=== PATIENT | female | born 1945 | race Hispanic/Latino ===

== ENCOUNTER 2016-05-16 06:03 | Inpatient (IN) | payer MEDICARE, OTHER ==
[2016-04-30 11:10] VITALS: BMI 34.5
[2016-05-16] MEDS ORDERED: Succinylcholine 200 mg/10 ml Inj IV ONE (07:13)
[2016-05-16] MEDS ORDERED: Neostigmine Methylsulfate 2 MG/2 ML ML IV ONE (07:13)
[2016-05-16] MEDS ORDERED: Propofol 10 mg/ml Inj (20 ML) ONE (07:13)
[2016-05-16] MEDS ORDERED: Lidocaine 4% (Laryng-O-Jet) Kit MM ONE (07:13)
[2016-05-16] MEDS ORDERED: Midazolam 2 MG/2 ML VIAL ONE (07:13)
[2016-05-16] MEDS ORDERED: Rocuronium 10 mg/ml (5 ml) ONE ×2 (07:15→07:46)
--- NOTE | 2016-05-16 07:27 | CP.PCM.CON ---
History of Present Illness - History of Present Illness History of Present Illness: 70 yo female seen in the office by Dr. Yoon,hx lumbar laminectomy and instrumented fusion for spondylosis and instability,presents with recurrent worsening LBP radiating down LLE with paresthesias,no relief with conservative management or narcotics,no relief with epidural pain injection 2 weeks ago with pain management,MRI showing lumbar spondylosis and HNP L3-4,ambulates with cane ,increasing difficulty performing ADL's,surgical and non surgical options discussed with pt,denies bowel or bladder incontinance,pelvic paresthesias,foot drop,trauma or fall. Review of Systems - Review of Systems Systems not reviewed;Unavailable: Acuity of Condition - Neurological Neurological: As Per HPI - Hematologic/Lymphatic Additional comments: daily ASA 81 mg Past Patient History - Infectious Disease Hx of Infectious Diseases: None - Tetanus Immunizations Tetanus Immunization: Unknown - Past Medical History & Family History Past Medical History?: Yes - Past Social History Smoking Status: Former Smoker Chewing Tobacco Use: No Cigar Use: No Alcohol: Occasional Drugs: Denies - CARDIAC Hx Cardiac Disorders: Yes Hx Hypercholesterolemia: Yes Hx Hypertension: Yes Hx Pacemaker: No - PULMONARY Hx Respiratory Disorders: Yes Hx Bronchitis: Yes (SEPTEMBER 2015) - NEUROLOGICAL Hx Neurological Disorder: Yes Hx Dizziness: Yes Hx Paralysis: No Hx Vertigo: Yes Other/Comment: NUMBNESS.TINGLING LEGS AND TOES .ARMS - HEENT Hx HEENT Problems: Yes Hx Cataracts: Yes - RENAL Hx Chronic Kidney Disease: No - ENDOCRINE/METABOLIC Hx Endocrine Disorders: Yes Hx Diabetes Mellitus Type 2: Yes Hx Hypothyroidism: Yes - HEMATOLOGICAL/ONCOLOGICAL Hx Blood Disorders: No Hx Blood Transfusions: No Hx Blood Transfusion Reaction: No - INTEGUMENTARY Hx Dermatological Problems: No - MUSCULOSKELETAL/RHEUMATOLOGICAL Hx Musculoskeletal Disorders: Yes Hx Arthritis: Yes Hx Back Pain: Yes Hx Falls: Yes Hx Osteoarthritis: Yes Hx Osteoporosis: Yes Other/Comment: MUSCLE WEAKNESS .LIMIT JOINT MOTION - GASTROINTESTINAL Hx Gastrointestinal Disorders: Yes Hx Gastroesophageal Reflux: Yes Hx Ulcer: Yes - GENITOURINARY/GYNECOLOGICAL Hx Genitourinary Disorders: Yes Hx Urinary Tract Infection: Yes - PSYCHIATRIC Hx Psychophysiologic Disorder: Yes Hx Depression: Yes Hx Emotional Abuse: No Hx Physical Abuse: No Hx Substance Use: No - SURGICAL HISTORY Hx Surgeries: Yes Hx Musculoskeletal Surgery: Yes (back surgery) Hx Orthopedic Surgery: Yes (RIGHT SHOULDR ROTATOR CUFF REPAIR) Other/Comment: LEFT OVARIAN CYSTECTOMY .EXCISION OF LIPOMA ON CHEST .SPINAL FUSION .MICRO DISECTOMY .LUMBAR LAMINECTOMY. laminectomy 01/11/16 - ANESTHESIA Hx Anesthesia: Yes Hx Anesthesia Reactions: No Hx Malignant Hyperthermia: No Has any member of the family had a problem w/ anesthesia?: No Meds Allergies/Adverse Reactions: Allergies Allergy/AdvReac Type Severity Reaction Status Date / Time No Known Allergies Allergy Verified 01/14/16 14:06 Physical Exam - Constitutional Appears: Well, Non-toxic, No Acute Distress - Head Exam Head Exam: ATRAUMATIC, NORMAL INSPECTION, NORMOCEPHALIC - Eye Exam Eye Exam: EOMI, Normal appearance, PERRL - ENT Exam ENT Exam: Mucous Membranes Moist, Normal Exam - Neck Exam Neck exam: Positive for: Normal Inspection - Respiratory Exam Respiratory Exam: Clear to Auscultation Bilateral, NORMAL BREATHING PATTERN - Cardiovascular Exam Cardiovascular Exam: REGULAR RHYTHM, +S1, +S2 - GI/Abdominal Exam GI & Abdominal Exam: Normal Bowel Sounds, Soft Additional comments: no pelvic paresthesias - Rectal Exam Rectal Exam: Deferred - Extremities Exam Extremities exam: Positive for: normal inspection, pedal pulses present - Back Exam Back exam: vertebral tenderness - Neurological Exam Neurological exam: Alert, Oriented x3 Additional comments: ALEXANDRA x 4 antigravity,weakness in bilateral hip flexion and knee extension 4/5, decreased sensation LLE,depressed DTR's,jarvis babinski - Psychiatric Exam Psychiatric exam: Anxious, Normal Affect - Skin Skin Exam: Dry, Intact, Normal Color Results - Vital Signs Recent Vital Signs: Last Vital Signs Temp 98.6 F 05/16/16 06:41 Pulse 100 H 05/16/16 06:44 Resp 20 05/16/16 06:41 BP 153/81 H 05/16/16 06:41 Pulse Ox 94 L 05/16/16 06:41 - Labs Labs: Laboratory Results - last 24 hr 05/16/16 07:02 POC Glucose (mg/dL) 206 H - Impressions Impression: MRI reviewed by Dr. Yoon,showing L3-4 large HNP with severe neuroforaminal narrowing Assessment & Plan - Assessment and Plan (Free Text) Assessment: 70 yo female with recurrent Lumbar Spondylosis/Instability/HNP L3-4 worsening LLE radiculapathy. Plan: Dr. Yoon had a lengthy discussion with pt regarding surgical and non surgical options,explained that surgery may or may not improve her symptoms,possible need for further surgery in the future,risks of surgery and complications d/w pt and Attd,pt expressed understanding and wishes to proceed.
[2016-05-16] MEDS ORDERED: Lactated Ringer's 1,000 ML IV ONE (07:40)
[2016-05-16] MEDS ORDERED: Bupivacaine HCl 0.25% PF (10 ml) Inj ONE (07:51)
[2016-05-16] MEDS ORDERED: Thrombin Topical 5,000 IU Spray Kit ONE (07:52)
[2016-05-16] MEDS ORDERED: Absorbable Gelatin Sponge Size 12-7 ONE (07:52)
[2016-05-16] MEDS ORDERED: Esmolol 100 mg/10ml Inj IV ONE (07:59)
[2016-05-16] MEDS ORDERED: Lidocaine/Epi 1% 1:100000 20 ML IJ ONE (08:03)
[2016-05-16] MEDS ORDERED: Bupivacaine HCl 0.25% PF (30 ml) Inj ONE (08:10)
[2016-05-16] MEDS ORDERED: Phenylephrine 10 mg/ml Inj ONE (08:22)
[2016-05-16] MEDS ORDERED: Neostigmine Methylsulfate 3mg/3ml Syringe IV ONE (08:26)
[2016-05-16] MEDS ORDERED: HEMOSTATIC MATRIX 10 ML DIS.NEEDLE TOP ONE (08:45)
[2016-05-16] MEDS ORDERED: Thrombin Topical 5,000 IU Spray Kit TOP ONE (08:55)
[2016-05-16] MEDS ORDERED: Absorbable Gelatin Sponge Size 12-7 TP ONE (08:55)
[2016-05-16] MEDS ORDERED: Desflurane Inhalation Anesthetic Liq (240 ml) ONE (09:02)
[2016-05-16] MEDS ORDERED: Naloxone 0.4 mg/ml Inj (Adult) ONE (09:14)
[2016-05-16] MEDS ORDERED: Bupivacaine HCl 0.25% PF (30 ml) Inj IJ ONE (09:25)
[2016-05-16] MEDS ORDERED: HYDROmorphone 0.5 mg/0.5 ml ISec ONE ×3 (09:34→09:48)
[2016-05-16] MEDS ORDERED: Naloxone 0.4 mg/ml Inj (Adult) IVP PRN (09:35)
[2016-05-16] MEDS: HYDROmorphone 0.5 mg/0.5 ml ISec IVP PRN ×3 (10:02→10:19)
--- NOTE | 2016-05-16 11:49 | RAD ---
PROCEDURE: Intraoperative fluoroscopy HISTORY: PLIF COMPARISON: Not available TECHNIQUE: Intraoperative fluoroscopy was provided for PLIF. Total time of floor 36.4 seconds. FINDINGS: A single fluoroscopic spot film is submitted. This is on file for review. IMPRESSION: Fluoroscopy provided.
[2016-05-16] MEDS ORDERED: Lactated Ringer's 1,000 ML IV SCH (12:00)
--- NOTE | 2016-05-16 13:22 | CP.PCM.HP ---
<Collette Hernadez - Last Filed: 05/16/16 15:44> History of Present Illness - History of Present Illness History of Present Illness: 70 yo female with history of NonInsulin dependent type II diabetes seen in the office by Dr. Yoon,hx lumbar laminectomy and instrumented fusion for spondylosis and instability,presents with recurrent worsening LBP radiating down LLE with paresthesias,no relief with conservative management or narcotics, no relief with epidural pain injection 2 weeks ago with pain management,MRI showing lumbar spondylosis and HNP L3-4,ambulates with cane,increasing difficulty performing ADL's,surgical and non surgical options discussed with pt, denies bowel or bladder incontinance,pelvic paresthesias,foot drop,trauma or fall. pt seen and examined s/p surgery,screaming in pain, complaining about everything hurting. Present on Admission - Present on Admission Any Indicators Present on Admission: Yes History of Uncontrolled Diabetes: Yes Review of Systems - Review of Systems All systems: reviewed and no additional remarkable complaints except Review of Systems: per HPI Past Patient History - Infectious Disease Hx of Infectious Diseases: None - Tetanus Immunizations Tetanus Immunization: Unknown - Past Medical History & Family History Past Medical History?: Yes - Past Social History Smoking Status: Former Smoker Chewing Tobacco Use: No Cigar Use: No Alcohol: Occasional Drugs: Denies - CARDIAC Hx Cardiac Disorders: Yes Hx Hypercholesterolemia: Yes Hx Hypertension: Yes Hx Pacemaker: No - PULMONARY Hx Respiratory Disorders: Yes Hx Bronchitis: Yes (SEPTEMBER 2015) - NEUROLOGICAL Hx Neurological Disorder: Yes Hx Dizziness: Yes Hx Paralysis: No Hx Vertigo: Yes Other/Comment: NUMBNESS.TINGLING LEGS AND TOES .ARMS - HEENT Hx HEENT Problems: Yes Hx Cataracts: Yes - RENAL Hx Chronic Kidney Disease: No - ENDOCRINE/METABOLIC Hx Endocrine Disorders: Yes Hx Diabetes Mellitus Type 2: Yes Hx Hypothyroidism: Yes - HEMATOLOGICAL/ONCOLOGICAL Hx Blood Disorders: No Hx Blood Transfusions: No Hx Blood Transfusion Reaction: No - INTEGUMENTARY Hx Dermatological Problems: No - MUSCULOSKELETAL/RHEUMATOLOGICAL Hx Musculoskeletal Disorders: Yes Hx Arthritis: Yes Hx Back Pain: Yes Hx Falls: Yes Hx Osteoarthritis: Yes Hx Osteoporosis: Yes Other/Comment: MUSCLE WEAKNESS .LIMIT JOINT MOTION - GASTROINTESTINAL Hx Gastrointestinal Disorders: Yes Hx Gastroesophageal Reflux: Yes Hx Ulcer: Yes - GENITOURINARY/GYNECOLOGICAL Hx Genitourinary Disorders: Yes Hx Urinary Tract Infection: Yes - PSYCHIATRIC Hx Psychophysiologic Disorder: Yes Hx Depression: Yes Hx Emotional Abuse: No Hx Physical Abuse: No Hx Substance Use: No - SURGICAL HISTORY Hx Surgeries: Yes Hx Musculoskeletal Surgery: Yes (back surgery) Hx Orthopedic Surgery: Yes (RIGHT SHOULDR ROTATOR CUFF REPAIR) Other/Comment: LEFT OVARIAN CYSTECTOMY .EXCISION OF LIPOMA ON CHEST .SPINAL FUSION .MICRO DISECTOMY .LUMBAR LAMINECTOMY. laminectomy 01/11/16 - ANESTHESIA Hx Anesthesia: Yes Hx Anesthesia Reactions: No Hx Malignant Hyperthermia: No Has any member of the family had a problem w/ anesthesia?: No Meds Allergies/Adverse Reactions: Allergies Allergy/AdvReac Type Severity Reaction Status Date / Time No Known Allergies Allergy Verified 01/14/16 14:06 Physical Exam - Constitutional Appears: Non-toxic, No Acute Distress - Head Exam Head Exam: NORMOCEPHALIC - Eye Exam Eye Exam: Normal appearance, PERRL Pupil Exam: NORMAL ACCOMODATION - ENT Exam ENT Exam: Mucous Membranes Moist - Respiratory Exam Respiratory Exam: Clear to Auscultation Bilateral, NORMAL BREATHING PATTERN. absent: Rhonchi, Wheezes - Cardiovascular Exam Cardiovascular Exam: REGULAR RHYTHM, +S1, +S2 - GI/Abdominal Exam GI & Abdominal Exam: Normal Bowel Sounds, Soft. absent: Tenderness - Extremities Exam Extremities exam: Positive for: normal inspection. Negative for: calf tenderness - Back Exam Additional comments: surgical site neatly dressed, with bulb draining - Neurological Exam Neurological exam: Alert, CN II-XII Intact, Oriented x3 Results - Vital Signs Recent Vital Signs: Last Vital Signs Temp 97.9 F 05/16/16 12:00 Pulse 100 H 05/16/16 12:00 Resp 18 05/16/16 12:00 BP 139/51 L 05/16/16 12:00 Pulse Ox 96 05/16/16 12:00 - Labs Labs: Laboratory Results - last 24 hr 05/16/16 05/16/16 07:02 10:14 POC Glucose (mg/dL) 206 H 235 H Blood Type O POSITIVE Antibody Screen Negative BBK History Checked Patient has bt Assessment & Plan - Assessment and Plan (Free Text) Assessment: 70 y/o female with history of chronic back pain admitted s/p laminectomy Plan: laminectomy Anesthesia consulted for pain management as pt pain tolerance is very low pain management- 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 bowel regime ordered PT ordered to start tomorrw Ancef ordered first dose given in OR NonInsulin Dependent Diabetic resume home meds accuchecks SSI Diet-clear liquid for now diabetic for breakfast DVT-scds lovenox to start saturday am <Sunday Brown - Last Filed: 05/19/16 18:26> Results - Vital Signs Recent Vital Signs: Last Vital Signs Temp 98.4 F 05/19/16 13:00 Pulse 113 H 05/19/16 13:00 Resp 18 05/19/16 13:00 BP 124/65 05/19/16 13:00 Pulse Ox 96 05/19/16 13:00 - Labs Labs: Laboratory Results - last 24 hr 05/18/16 05/19/16 05/19/16 21:51 05:26 11:23 POC Glucose (mg/dL) 138 H 201 H 220 H Assessment & Plan - Assessment and Plan (Free Text) Plan: I was present during evaluation and discussed with Dr Satya montes plans of care and management. Sunday Brown M.D.
[2016-05-16] MEDS: Insulin Lispro Mix 75/25 100 units/ml (HumaLog) 10ml SC SCH (18:34)
[2016-05-16] MEDS: Docusate-Senna 50 mg-8.6 mg Tab PO SCH ×2 (21:51→21:54)
[2016-05-16] MEDS: Pravastatin Sodium 20 MG TAB PO SCH (21:51)
[2016-05-16] MEDS: Insulin Detemir 100 Units/ml Inj SC SCH (22:09)
[2016-05-16] MEDS: ceFAZolin 1 GM in Sodium Chloride 0.9% 100 ML IVPB SCH (22:13)
[2016-05-17] MEDS ORDERED: Oxycodone/Acetaminophen 5/325 mg Tab PO PRN ×2 (08:00)
[2016-05-17] MEDS: Pantoprazole 40 mg EC Tab PO SCH (08:52)
[2016-05-17] MEDS: Insulin Lispro Mix 75/25 100 units/ml (HumaLog) 10ml SC SCH ×2 (08:52→19:55)
[2016-05-17] MEDS: Levothyroxine 175 MCG TAB PO SCH (08:53)
[2016-05-17] MEDS ORDERED: oxyCODONE 20 mg ER Tab (oxyCONTIN) PO SCH (09:15)
--- NOTE | 2016-05-17 09:38 | CP.PCM.CON ---
History of Present Illness - History of Present Illness History of Present Illness: 70yF with failed back surgery POD 1 s/p lumbar laminectomy and fusion. 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 Pain is sharp in quality, but responds to IV medication. Medication and rest make her pain better while movement worsens her pain. Pre- op her pain was VAS 9/10, and she was taking Dilaudid as home pain medication. Her pain has some radiation to the left leg. Past Patient History - Infectious Disease Hx of Infectious Diseases: None - Tetanus Immunizations Tetanus Immunization: Unknown - Past Medical History & Family History Past Medical History?: Yes - Past Social History Smoking Status: Former Smoker Chewing Tobacco Use: No Cigar Use: No Alcohol: Occasional Drugs: Denies - CARDIAC Hx Cardiac Disorders: Yes Hx Hypercholesterolemia: Yes Hx Hypertension: Yes Hx Pacemaker: No - PULMONARY Hx Respiratory Disorders: Yes Hx Bronchitis: Yes (SEPTEMBER 2015) - NEUROLOGICAL Hx Neurological Disorder: Yes Hx Dizziness: Yes Hx Paralysis: No Hx Vertigo: Yes Other/Comment: NUMBNESS.TINGLING LEGS AND TOES .ARMS - HEENT Hx HEENT Problems: Yes Hx Cataracts: Yes - RENAL Hx Chronic Kidney Disease: No - ENDOCRINE/METABOLIC Hx Endocrine Disorders: Yes Hx Diabetes Mellitus Type 2: Yes Hx Hypothyroidism: Yes - HEMATOLOGICAL/ONCOLOGICAL Hx Blood Disorders: No Hx Blood Transfusions: No Hx Blood Transfusion Reaction: No - INTEGUMENTARY Hx Dermatological Problems: No - MUSCULOSKELETAL/RHEUMATOLOGICAL Hx Musculoskeletal Disorders: Yes Hx Arthritis: Yes Hx Back Pain: Yes Hx Falls: Yes Hx Osteoarthritis: Yes Hx Osteoporosis: Yes Other/Comment: MUSCLE WEAKNESS .LIMIT JOINT MOTION - GASTROINTESTINAL Hx Gastrointestinal Disorders: Yes Hx Gastroesophageal Reflux: Yes Hx Ulcer: Yes - GENITOURINARY/GYNECOLOGICAL Hx Genitourinary Disorders: Yes Hx Urinary Tract Infection: Yes - PSYCHIATRIC Hx Psychophysiologic Disorder: Yes Hx Depression: Yes Hx Emotional Abuse: No Hx Physical Abuse: No Hx Substance Use: No - SURGICAL HISTORY Hx Surgeries: Yes Hx Musculoskeletal Surgery: Yes (back surgery) Hx Orthopedic Surgery: Yes (RIGHT SHOULDR ROTATOR CUFF REPAIR) Other/Comment: LEFT OVARIAN CYSTECTOMY .EXCISION OF LIPOMA ON CHEST .SPINAL FUSION .MICRO DISECTOMY .LUMBAR LAMINECTOMY. laminectomy 01/11/16 - ANESTHESIA Hx Anesthesia: Yes Hx Anesthesia Reactions: No Hx Malignant Hyperthermia: No Has any member of the family had a problem w/ anesthesia?: No Meds Allergies/Adverse Reactions: Allergies Allergy/AdvReac Type Severity Reaction Status Date / Time No Known Allergies Allergy Verified 01/14/16 14:06 - Medications Medications: Current Medications Cyclobenzaprine HCl (Flexeril) 10 mg PO TID PRN PRN Reason: Muscle spasm Last Admin: 05/17/16 08:51 Dose: 10 mg Docusate Sodium (Colace) 100 mg PO BID [facility] Last Admin: 05/17/16 08:51 Dose: 100 mg Enoxaparin Sodium (Lovenox) 40 mg SC DAILY [facility] PRN Reason: Protocol Gabapentin (Neurontin) 200 mg PO TID [facility] Last Admin: 05/17/16 08:51 Dose: 200 mg Hydromorphone HCl (Dilaudid 0.2 Mg/Ml Paleobotanist) 0 mg IV PRN PRN; Protocol PRN Reason: Pain, severe (8-10) Last Admin: 05/17/16 06:26 Dose: 6 mg Hydromorphone HCl (Dilaudid) 4 mg PO Q4 PRN PRN Reason: Pain, severe (8-10) Cefazolin Sodium 1 gm/ Sodium (Chloride) 100 mls @ 100 mls/hr IVPB Q12 [facility] Last Admin: 05/16/16 22:13 Dose: 100 mls/hr Insulin Detemir (Levemir) 30 units SC HS [facility] Last Admin: 05/16/16 22:09 Dose: Not Given Insulin Lispro Protam/Lispro Human (Humalog Mix 75/25) 30 units SC BID [facility] Last Admin: 05/17/16 08:52 Dose: 30 units Levothyroxine Sodium (Synthroid) 175 mcg PO DAILY [facility] Last Admin: 05/17/16 08:53 Dose: 175 mcg Lisinopril (Zestril) 2.5 mg PO DAILY [facility] Last Admin: 05/17/16 08:53 Dose: 2.5 mg Naloxone HCl (Narcan) 0.1 mg IVP Q2M PRN PRN Reason: Agitation Ondansetron HCl (Zofran Inj) 4 mg IVP Q4 PRN PRN Reason: Nausea/Vomiting Last Admin: 05/17/16 09:03 Dose: 4 mg Pantoprazole Sodium (Protonix Ec Tab) 40 mg PO DAILY [facility] Last Admin: 05/17/16 08:52 Dose: 40 mg Pravastatin Sodium (Pravachol) 20 mg PO HS [facility] Last Admin: 05/16/16 21:51 Dose: 20 mg Senna/Docusate Sodium (Senokot S 50 Mg-8.6 Mg) 2 tab PO HS [facility] Last Admin: 05/16/16 21:54 Dose: Not Given Physical Exam - Constitutional Appears: No Acute Distress - Extremities Exam Additional comments: DP flex 5/5 bilateral LE, sensation grossly intact - Back Exam Additional comments: back c/d/i, appropriately tender Results - Vital Signs Recent Vital Signs: Last Vital Signs Temp 97.8 F 05/17/16 08:00 Pulse 110 H 05/17/16 08:53 Resp 18 05/17/16 08:00 BP 130/77 05/17/16 08:53 Pulse Ox 98 05/17/16 08:00 - Labs Labs: Laboratory Results - last 24 hr 05/16/16 05/16/16 05/16/16 10:14 17:03 21:28 POC Glucose (mg/dL) 235 H 288 H 282 H 05/17/16 05:20 POC Glucose (mg/dL) 265 H Assessment & Plan - Assessment and Plan (Free Text) Assessment: 70yF POD 1 lumbar laminectomy Plan: 1. Wean red lead burner as tolerated 2. Transition to po meds 3. PT 4. CAre as per primary team
--- NOTE | 2016-05-17 09:38 | OP ---
PROCEDURE DATE: 05/16/2016 PREOPERATIVE DIAGNOSES: Lumbar spondylosis, status post lumbar fusion, spinal instability. POSTOPERATIVE DIAGNOSES: Lumbar spondylosis, status post lumbar fusion, spinal instability. PROCEDURE: Reexploration of L3-L4 lumbar laminectomy and extended medial facetectomy and laminectomy and L3-L4 pedicle screw fixation and instrumentation using Amendia system. Fluoroscopy has been use d. Microscope has been used. L3-L4 posterolateral fusion. SURGEON: Dr. Yoon VACUUM KETTLE COOK: Lazara Frazier. Lazara Frazier stayed throughout the case from the beginni ng to the end, helped me perform the surgery. DESCRIPTION OF PROCEDURE: The patient was brought to the operating room, administered with general e ndotracheal anesthesia. Back of the lumbar area thoroughly prepped and draped in standard sterile ma nner. After identifying the levels, the previously made skin incision has been opened. Bleeding ski n edges have been controlled with bipolar healthcare liaison. After using a Bovie healthcare liaison, paraspinal mus cles have been detached from attachment of spinous process at L3-L4. The previously made laminectomy defect has been noted. At this point, by using traditional landmarks, point of entry has been noted for the pedicle screws of L3 and L4. Initially, a K-wire, later a drill has been used in order to e nter the pedicles. Polyaxial titanium screws of Amendia system have been placed at L3 and L4. Titan ium rods have been placed and cap nuts have been used in order to secure them. All this has been con firmed under fluoroscopy. After that, the scar tissue at L3-L4 has been removed. By using a high-sp eed drill, the medial part of the facets at L3-L4 have been further drilled and the laminectomy has b een completed decompressing this area. At this point, lateral aspect of the facet joint, transverse process have been decorticated. Demineralized bone placed in the area achieving a posterolateral fus ion from L3-L4. Hemostasis best achieved. Dashawn drain placed in the wound, brought out through a separate stab next to skin incision. Muscles and fascia closed with 1-0 Vicryl, subcutaneous with 3- 0 Vicryl, skin has been closed with intradermal 3-0 Vicryl stitches. The patient tolerated the proce dure. After procedure, mobilized to the recovery room in stable and awake condition. Richard Yoon MD cc: [id number] TT: 05/17/2016 09:37:40 en
--- NOTE | 2016-05-17 11:16 | CP.PCM.PN ---
<Collette Hernadez - Last Filed: 05/17/16 11:18> Subjective - Date & Time of Evaluation Date of Evaluation: 05/17/16 Time of Evaluation: 09:30 - Subjective Subjective: Pt seen and evaluated at bedside, while PT was attempting to get her out of bed , pt was refusing stating it hurts too much. expressed to patient about the importance of moving around following surgery, pt expresses understanding and will allow physical therapy to move forward. reports FRENCH PASTRY COOK pump not controlling her pain very well. oral Dilaudid ordered. Objective - Vital Signs/Intake and Output Vital Signs (last 24 hours): Temp Pulse Resp BP Pulse Ox 97.8 F 110 H 18 130/77 98 05/17/16 08:00 05/17/16 08:53 05/17/16 08:00 05/17/16 08:53 05/17/16 08:00 Intake and Output: 05/17/16 05/17/16 06:59 18:59 Intake Total 1814 Output Total 80 Balance 1734 - Medications Medications: Current Medications Cyclobenzaprine HCl (Flexeril) 10 mg PO TID PRN PRN Reason: Muscle spasm Last Admin: 05/17/16 08:51 Dose: 10 mg Docusate Sodium (Colace) 100 mg PO BID [facility] Last Admin: 05/17/16 08:51 Dose: 100 mg Enoxaparin Sodium (Lovenox) 40 mg SC DAILY [facility] PRN Reason: Protocol Gabapentin (Neurontin) 200 mg PO TID [facility] Last Admin: 05/17/16 08:51 Dose: 200 mg Hydromorphone HCl (Dilaudid 0.2 Mg/Ml Header Dock) 0 mg IV PRN PRN; Protocol PRN Reason: Pain, severe (8-10) Last Admin: 05/17/16 06:26 Dose: 6 mg Hydromorphone HCl (Dilaudid) 4 mg PO Q4 PRN PRN Reason: Pain, severe (8-10) Last Admin: 05/17/16 09:51 Dose: 4 mg Cefazolin Sodium 1 gm/ Sodium (Chloride) 100 mls @ 100 mls/hr IVPB Q12 [facility] Last Admin: 05/16/16 22:13 Dose: 100 mls/hr Insulin Detemir (Levemir) 30 units SC [facility] Last Admin: 05/16/16 22:09 Dose: Not Given Insulin Lispro Protam/Lispro Human (Humalog Mix 75/25) 30 units SC BID [facility] Last Admin: 05/17/16 08:52 Dose: 30 units Levothyroxine Sodium (Synthroid) 175 mcg PO DAILY [facility] Last Admin: 05/17/16 08:53 Dose: 175 mcg Lisinopril (Zestril) 2.5 mg PO DAILY [facility] Last Admin: 05/17/16 08:53 Dose: 2.5 mg Naloxone HCl (Narcan) 0.1 mg IVP Q2M PRN PRN Reason: Agitation Ondansetron HCl (Zofran Inj) 4 mg IVP Q4 PRN PRN Reason: Nausea/Vomiting Last Admin: 05/17/16 09:03 Dose: 4 mg Pantoprazole Sodium (Protonix Ec Tab) 40 mg PO DAILY [facility] Last Admin: 05/17/16 08:52 Dose: 40 mg Pravastatin Sodium (Pravachol) 20 mg PO [facility] Last Admin: 05/16/16 21:51 Dose: 20 mg Senna/Docusate Sodium (Senokot S 50 Mg-8.6 Mg) 2 tab PO [facility] Last Admin: 05/16/16 21:54 Dose: Not Given - Constitutional Appears: Non-toxic, No Acute Distress - Head Exam Head Exam: NORMOCEPHALIC - Eye Exam Eye Exam: Normal appearance - ENT Exam ENT Exam: Mucous Membranes Moist - Respiratory Exam Respiratory Exam: Clear to Ausculation Bilateral, NORMAL BREATHING PATTERN. absent: Rhonchi, Wheezes - Cardiovascular Exam Cardiovascular Exam: REGULAR RHYTHM, +S1, +S2 - GI/Abdominal Exam GI & Abdominal Exam: Soft, Normal Bowel Sounds. absent: Tenderness - Extremities Exam Extremities Exam: Normal Inspection. 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 Phys therapy started. Sunday Brown M.D.
[2016-05-17] MEDS: ceFAZolin 1 GM in Sodium Chloride 0.9% 100 ML IVPB SCH ×2 (16:34→21:11)
[2016-05-17] MEDS: Pravastatin Sodium 20 MG TAB PO SCH (21:11)
[2016-05-17] MEDS: Docusate-Senna 50 mg-8.6 mg Tab PO SCH (21:11)
[2016-05-17] MEDS: Insulin Detemir 100 Units/ml Inj SC SCH (21:18)
[2016-05-18] MEDS: Enoxaparin 40 mg Syringe SC SCH (08:30)
[2016-05-18] MEDS: Pantoprazole 40 mg EC Tab PO SCH (08:32)
[2016-05-18] MEDS: Levothyroxine 175 MCG TAB PO SCH (08:33)
[2016-05-18] MEDS: Insulin Lispro Mix 75/25 100 units/ml (HumaLog) 10ml SC SCH ×2 (08:34→16:20)
[2016-05-18] MEDS: ceFAZolin 1 GM in Sodium Chloride 0.9% 100 ML IVPB SCH ×2 (08:38→21:36)
--- NOTE | 2016-05-18 11:46 | CP.PCM.PN ---
Addendum entered and electronically signed by Collette Hernadez MD 05/18/16 11:56: Disposition: discharge to subacute rehab in the AM Original Note: <Collette Hernadez - Last Filed: 05/18/16 11:49> Subjective - Date & Time of Evaluation Date of Evaluation: 05/18/16 Time of Evaluation: 10:35 - Subjective Subjective: Pt seen and examined at bedside, still reporting being in a lot of pain in her groin region and in her back, refusing to partake in physical therapy. denies any numbness or tingling, visual changes or vomiting or diarrhea. She would also her like her diet changed from diabetic diet to regular even though she is a poorly controlled diabetic with hyperlipidemia Objective - Vital Signs/Intake and Output Vital Signs (last 24 hours): Temp Pulse Resp BP Pulse Ox 97.9 F 114 H 18 134/81 92 L 05/18/16 08:13 05/18/16 09:00 05/18/16 08:13 05/18/16 08:33 05/18/16 08:13 Intake and Output: 05/18/16 05/18/16 06:59 18:59 Intake Total 725 430 Output Total 105 40 Balance 620 390 - Medications Medications: Current Medications Cyclobenzaprine HCl (Flexeril) 10 mg PO TID PRN PRN Reason: Muscle spasm Last Admin: 05/18/16 08:31 Dose: 10 mg Docusate Sodium (Colace) 100 mg PO BID [facility] Last Admin: 05/18/16 08:31 Dose: 100 mg Enoxaparin Sodium (Lovenox) 40 mg SC DAILY [facility] PRN Reason: Protocol Last Admin: 05/18/16 08:30 Dose: 40 mg Gabapentin (Neurontin) 200 mg PO TID [facility] Last Admin: 05/18/16 08:30 Dose: 200 mg Hydromorphone HCl (Dilaudid) 4 mg PO Q4 PRN PRN Reason: Pain, severe (8-10) Last Admin: 05/18/16 05:05 Dose: 4 mg Cefazolin Sodium 1 gm/ Sodium (Chloride) 100 mls @ 100 mls/hr IVPB Q12 [facility] Last Admin: 05/18/16 08:38 Dose: 100 mls/hr Ibuprofen (Motrin Tab) 600 mg PO Q6 [facility] Insulin Detemir (Levemir) 30 units SC [facility] Last Admin: 05/17/16 21:18 Dose: 30 u Insulin Lispro Protam/Lispro Human (Humalog Mix 75/25) 30 units SC BID [facility] Last Admin: 05/18/16 08:34 Dose: 30 units Levothyroxine Sodium (Synthroid) 175 mcg PO DAILY [facility] Last Admin: 05/18/16 08:33 Dose: 175 mcg Lisinopril (Zestril) 2.5 mg PO DAILY [facility] Last Admin: 05/18/16 08:33 Dose: 2.5 mg Naloxone HCl (Narcan) 0.1 mg IVP Q2M PRN PRN Reason: Agitation Ondansetron HCl (Zofran Inj) 4 mg IVP Q4 PRN PRN Reason: Nausea/Vomiting Last Admin: 05/17/16 09:03 Dose: 4 mg Pantoprazole Sodium (Protonix Ec Tab) 40 mg PO DAILY [facility] Last Admin: 05/18/16 08:32 Dose: 40 mg Pravastatin Sodium (Pravachol) 20 mg PO [facility] Last Admin: 05/17/16 21:11 Dose: 20 mg Senna/Docusate Sodium (Senokot S 50 Mg-8.6 Mg) 2 tab PO [facility] Last Admin: 05/17/16 21:11 Dose: 2 tab - Constitutional Appears: Non-toxic - Head Exam Head Exam: NORMOCEPHALIC - Eye Exam Eye Exam: Normal appearance - ENT Exam ENT Exam: Mucous Membranes Moist - Respiratory Exam Respiratory Exam: Clear to Ausculation Bilateral, NORMAL BREATHING PATTERN. absent: Rhonchi, Wheezes - Cardiovascular Exam Cardiovascular Exam: REGULAR RHYTHM, +S1, +S2 - GI/Abdominal Exam GI & Abdominal Exam: Soft, Normal Bowel Sounds. absent: Tenderness - Back Exam Additional comments: Unable to exam as pt refuses to roll over or even tolerate being touched - Neurological Exam Neurological Exam: Alert, Awake, CN II-XII Intact, Oriented x3 Assessment and Plan - Assessment and Plan (Free Text) Assessment: 70 y/o female with history of chronic back pain and insulin dependent diabetic admitted s/p laminectomy Plan: laminectomy POD#2 pt still reporting being in severe pain pain management- 4mg dilaudid Q4hrs bowel regime ordered continue with ancef Insulin Dependent Diabetic resume home meds accuchecks SSI Diet explained to pt regular diet given her healthy is ill advised, pt persist she wants regular diet DVT-scds lovenox <Sunday Brown - Last Filed: 05/19/16 18:27> Objective - Vital Signs/Intake and Output Vital Signs (last 24 hours): Temp Pulse Resp BP Pulse Ox 98.4 F 113 H 18 124/65 96 05/19/16 13:00 05/19/16 13:00 05/19/16 13:00 05/19/16 13:00 05/19/16 13:00 Assessment and Plan - Assessment and Plan (Free Text) Plan: I was present during evaluation and discused with Dr Satya montes plans of care TCU eval. Sunday Brown M.D.
--- NOTE | 2016-05-18 12:31 | CP.PCM.PCO ---
Assessment/Plan - Assessment/Plan Plan (Free Text): Plan discussed with Dr Karrie JP drain removed with 40ml of serosanguinous drainage. Patient for SARY tomorrow to continue physical therapy and pain management. Dr Brown made aware. Discussed with Patient. - Problems Patient Problems: Problem List (Active/Current) Problem Status Priority Diagnosed Code Back pain Acute M54.9
[2016-05-18] MEDS: Pravastatin Sodium 20 MG TAB PO SCH (21:37)
[2016-05-18] MEDS: Docusate-Senna 50 mg-8.6 mg Tab PO SCH (21:38)
[2016-05-18] MEDS: Insulin Detemir 100 Units/ml Inj SC SCH (23:07)
[2016-05-19] MEDS: ceFAZolin 1 GM in Sodium Chloride 0.9% 100 ML IVPB SCH (08:31)
[2016-05-19] MEDS: Insulin Lispro Mix 75/25 100 units/ml (HumaLog) 10ml SC SCH (08:32)
[2016-05-19] MEDS: Enoxaparin 40 mg Syringe SC SCH (08:33)
[2016-05-19] MEDS: Pantoprazole 40 mg EC Tab PO SCH (08:34)
[2016-05-19] MEDS: Levothyroxine 175 MCG TAB PO SCH (08:35)
[2016-05-19 13:20] VITALS: BP 124/65; PULSE 113; RESP 18; TEMP 98.4; O2SAT 96
--- NOTE | 2016-05-19 18:25 | CP.PCM.DIS ---
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 She stayed in the telemetry floor and had a lot of pain post op. Sh was started on physical therapy and was discharged to TCU for further Phys therapy. Discharge Exam - Head Exam Head Exam: NORMOCEPHALIC - Eye Exam Eye Exam: Normal appearance - Respiratory Exam Respiratory Exam: NORMAL BREATHING PATTERN - Cardiovascular Exam Cardiovascular Exam: REGULAR RHYTHM - GI/Abdominal Exam GI & Abdominal Exam: Normal Bowel Sounds - Neurological Exam Neurological exam: CN II-XII Intact, Reflexes Normal - Psychiatric Exam Psychiatric exam: Normal Mood Discharge Plan - Follow Up Plan Condition: GOOD Disposition: TRANF IP REHAB FAC/UNIT W READ Additional Instructions: will follow up in TCU for rehab. Referrals: Adi Ayon MD [Primary Care Provider] -
== END 2016-05-19 14:20 | DRG 460 ==
LOC: H.OPSURG 06:03 → H.TEL 10:37
PROVIDERS: ADMIT Family Medicine; ATTEND Family Medicine
PROC: 0SG00Z1 (ICD-10-PCS; principal; 2016-05-16 09:45)
DX: M51.16 Intervertebral disc disorders with radiculopathy, lumbar region (principal); E11.9 Type 2 diabetes mellitus without complications; R20.9 Unspecified disturbances of skin sensation; Z79.4 Long term (current) use of insulin; E78.5 Hyperlipidemia, unspecified; M53.2X6 Spinal instabilities, lumbar region; M47.26 Other spondylosis with radiculopathy, lumbar region